=== PATIENT | male | born 1935 | race Caucasian/White ===

== ENCOUNTER 2019-05-20 14:51 | Outpatient (CLI) | payer MEDICARE, OTHER | END 2019-05-20 23:59 | disposition home or self-care (01) | LOC: VAS 14:51 | PROVIDERS: ATTEND Internal Medicine Cardiovascular Disease | DX: R06.9 Unspecified abnormalities of breathing (principal); R60.9 Edema, unspecified; Z87.891 Personal history of nicotine dependence | CPT/HCPCS: 93971 ==

== ENCOUNTER 2019-09-03 05:53 | Day surgery (SDC) | payer MEDICARE, OTHER ==
[2019-09-02 12:36] LABS: BASOPHILS # (AUTO) 0.1 X10'3 (0-0.2); BASOPHILS % (AUTO) 0.8 % (0-1); EOSINOPHILS # (AUTO) 0.3 X10'3 (0-0.9); EOSINOPHILS % (AUTO) 4.1 % (0-6); HEMATOCRIT 43.2 % (42.0-52.0); HEMOGLOBIN 13.7 g/dl (14.0-17.9); LYMPHOCYTES # (AUTO) 2.1 X10'3 (1.1-4.8); LYMPHOCYTES % (AUTO) 30.5 % (21-51); MEAN CORPUSCULAR HEMOGLOBIN 27.2 PG (27.0-31.0); MEAN CORPUSCULAR HGB CONC 31.7 g/dL (33.0-36.5); MEAN CORPUSCULAR VOLUME 85.9 FL (78-98); MEAN PLATELET VOLUME 8.7 FL (7.4-10.4); MONOCYTES # (AUTO) 0.7 X10'3 (0-0.9); MONOCYTES % (AUTO) 10.4 % (2-12); NEUTROPHILS # (AUTO) 3.7 X10'3 (1.8-7.7); NEUTROPHILS % (AUTO) 54.2 % (42-75); PLATELET COUNT 192 X10'3 (140-440); RED BLOOD COUNT 5.03 X10'6 (4.70-6.10); RED CELL DISTRIBUTION WIDTH 21.1 % (11.5-14.5); WHITE BLOOD COUNT 6.8 X10'3 (4.5-11.0)
[2019-09-02 12:49] LABS: ALBUMIN 3.6 G/DL (3.4-5.0); ANION GAP 5 (8-16); BLOOD UREA NITROGEN 17 MG/DL (7-18); BUN/CREATININE RATIO 14.3 (5.4-32.0); CALCIUM 8.8 MG/DL (8.5-10.1); CHLORIDE 105 MMOL/L (99-107); CREATININE 1.19 MG/DL (0.60-1.10); GLUCOSE 105 MG/DL (70-104); POTASSIUM 3.6 MMOL/L (3.5-5.1); SODIUM 145 MMOL/L (135-145); eGFR 58 ML/MIN
[2019-09-02 12:53] LABS: PARTIAL THROMBOPLASTIN TIME 34 SECONDS (22-32)
[2019-09-02 13:15] LABS: ANISOCYTOSIS 3+; PLATELET ESTIMATE NORMAL
[2019-09-02 13:16] LABS: POLYCHROMASIA FEW
[~2019-09-03] VITALS: Ht 182.9 cm; Wt 89.5 kg
[2019-09-03] VITALS (10 sets, daily range): BP systolic 120–190; BP diastolic 70–90
[2019-09-03] MEDS ORDERED: LORazepam 0.5 MG tablet PO PRN (06:25)
[2019-09-03] MEDS ORDERED: normal saline 1,000 ML IV SCH ×2 (06:25→09:50)
[2019-09-03] MEDS ORDERED: diphenhydrAMINE 25mg capsule PO PRN (06:25)
[2019-09-03] MEDS ORDERED: AMIO100T4 PO (06:43)
[2019-09-03] MEDS ORDERED: FURO40TA4 PO (06:43)
[2019-09-03] MEDS ORDERED: WARF2.5T82 PO (06:43)
[2019-09-03] MEDS ORDERED: LATA2.5D2 (06:43)
[2019-09-03] MEDS ORDERED: BRIM10DR2 (06:43)
[2019-09-03] MEDS ORDERED: MAGN500C16 PO (06:43)
[2019-09-03] MEDS ORDERED: APIX5TAB3 PO (06:43)
[2019-09-03] MEDS ORDERED: MULT-1085 PO (06:43)
[2019-09-03] MEDS ORDERED: ASPI-611 PO (06:43)
[2019-09-03] MEDS ORDERED: ATOR-2 PO (06:43)
[2019-09-03] MEDS ORDERED: LIDOcaine/PRILOcaine 5gm cream TP ONE (07:05)
[2019-09-03] MEDS ORDERED: nitroGLYCERIN-Tridil 50MG/D5W 250 ML IV ONE (07:43)
[2019-09-03] MEDS ORDERED: heparin 1,000unit/ml 10ml vial 10 ML ONE (07:43)
[2019-09-03] MEDS ORDERED: midazolam 2 mg/2 ml injection ONE (07:43)
[2019-09-03] MEDS ORDERED: verapamil 2.5 mg/ml inj IV ONE (07:43)
[2019-09-03] MEDS ORDERED: iohexol 350MG/ML 100ml bottle IV ONE (07:43)
[2019-09-03] MEDS ORDERED: LIDOcaine 1% (10mg/ml)w/preservative injection 20ml MDV ONE (07:43)
[2019-09-03] MEDS ORDERED: fentaNYL/PF 50MCG/1 ML 2ML syringe ONE (07:43)
[2019-09-03] MEDS ORDERED: iohexol 350 MG/ML 50ML vial IV ONE (07:43)
--- NOTE | 2019-09-03 13:05 | NUR ---
pt sat up to 45 degree, site stable, soft, no s/s of bleeding. Pt resting comfortably. will continue to monitor.
[2019-09-03 17:11] LABS: ISTAT Hct MIX 39 %PCV (42-52); ISTAT O2 SATURATION MIX VENOUS 73 % (60-80); ISTAT SOURCE MIX
[2019-09-03 17:11] LABS: ISTAT HGB ART 13.3 g/dl (14.0-18.0); ISTAT Hct ART 39 %PCV (42-52); ISTAT O2 SATURATION ARTERIAL 93 % (95-98); ISTAT SOURCE ART
== END 2019-09-03 14:10 | disposition home or self-care (01) ==
LOC: MED 3N 05:53 → SSTAY O 05:53
PROVIDERS: ATTEND Internal Medicine Cardiovascular Disease
DX: R94.39 Abnormal result of other cardiovascular function study (principal); I25.10 Atherosclerotic heart disease of native coronary artery without angina pectoris; E78.5 Hyperlipidemia, unspecified; I10 Essential (primary) hypertension; I48.0 Paroxysmal atrial fibrillation; G47.30 Sleep apnea, unspecified; Z79.899 Other long term (current) drug therapy; Z86.73 Personal history of transient ischemic attack (TIA), and cerebral infarction without residual deficits; Z79.01 Long term (current) use of anticoagulants; Z98.890 Other specified postprocedural states; Z85.46 Personal history of malignant neoplasm of prostate; Z79.82 Long term (current) use of aspirin; Z87.891 Personal history of nicotine dependence
CPT/HCPCS: 36415; 80048; 82803; 85014; 85025; 85610; 85730; 93005; 93460; 99152; 99153; C1769; C1894; J1644; J2001; J2250; J3010; J7030; Q0163; Q9967; A4620; C1760; GO378; J3490

== ENCOUNTER 2022-01-18 09:51 | Day surgery (SDC) | payer MEDICARE, OTHER ==
[2022-01-17 09:35] LABS: BASOPHILS # (AUTO) 0.1 X10'3 (0-0.2); BASOPHILS % (AUTO) 0.8 % (0-1); EOSINOPHILS # (AUTO) 0.2 X10'3 (0-0.9); EOSINOPHILS % (AUTO) 2.8 % (0-6); HEMATOCRIT 38.4 % (42.0-52.0); HEMOGLOBIN 12.2 g/dl (14.0-17.9); LYMPHOCYTES % (AUTO) 29.1 % (21-51); MEAN CORPUSCULAR HEMOGLOBIN 25.8 PG (27.0-31.0); MEAN CORPUSCULAR HGB CONC 31.9 g/dL (33.0-36.5); MEAN CORPUSCULAR VOLUME 80.8 FL (78-98); MEAN PLATELET VOLUME 8.2 FL (7.4-10.4); MONOCYTES # (AUTO) 0.5 X10'3 (0-0.9); MONOCYTES % (AUTO) 7.6 % (2-12); NEUTROPHILS # (AUTO) 4.1 X10'3 (1.8-7.7); NEUTROPHILS % (AUTO) 59.7 % (42-75); PLATELET COUNT 214 X10'3 (140-440); RED BLOOD COUNT 4.75 X10'6 (4.70-6.10); RED CELL DISTRIBUTION WIDTH 18.3 % (11.5-14.5); WHITE BLOOD COUNT 6.9 X10'3 (4.5-11.0)
[2022-01-17 09:53] LABS: ALBUMIN 3.4 G/DL (3.4-5.0); ANION GAP 8 (8-16); BLOOD UREA NITROGEN 22 MG/DL (7-18); BUN/CREATININE RATIO 14.1 (5.4-32.0); CALCIUM 8.6 MG/DL (8.5-10.1); CHLORIDE 104 MMOL/L (99-107); CREATININE 1.56 MG/DL (0.60-1.10); GLUCOSE 135 MG/DL (70-104); POTASSIUM 4.2 MMOL/L (3.5-5.1); SODIUM 141 MMOL/L (135-145); TOTAL CARBON DIOXIDE 29.1 MMOL/L (24-32); eGFR 42 ML/MIN
[2022-01-17 09:56] LABS: APTT 35 SECONDS (22-32)
[2022-01-18] VITALS (13 sets, daily range): BP systolic 114–194; BP diastolic 58–122
[~2022-01-18] VITALS: Ht 182.9 cm; Wt 89.0 kg
[~2022-01-18 09:51] MED LIST: AMIO100T4 PO; APIX5TAB3 PO; ASPI-611 PO; ATOR-2 PO; BRIM10DR2; FURO40TA4 PO; LATA2.5D14; MAGN500C4 PO; MULT-1085 PO; WARF2.5T82 PO
[2022-01-18] MEDS ORDERED: diphenhydrAMINE 25mg capsule PO PRN (10:20)
[2022-01-18] MEDS ORDERED: LORazepam 0.5 MG tablet PO PRN (10:20)
[2022-01-18] MEDS ORDERED: PANT-47 PO (10:43)
[2022-01-18] MEDS ORDERED: MONT-40 PO (10:47)
[2022-01-18] MEDS ORDERED: ISOS30TA84 PO (10:47)
[2022-01-18] MEDS ORDERED: IRBE150T24 PO (10:47)
[2022-01-18] MEDS ORDERED: NITR4.9S4 (10:47)
[2022-01-18] MEDS ORDERED: midazolam 1 mg/ML 2ml injection ONE (13:57)
[2022-01-18] MEDS ORDERED: verapamil 2.5 mg/ml inj IV ONE (13:57)
[2022-01-18] MEDS ORDERED: nitroGLYCERIN-Tridil 50MG/D5W 250 ML IV ONE (13:57)
[2022-01-18] MEDS ORDERED: heparin 1,000unit/ml 10ml vial 10 ML ONE (13:58)
[2022-01-18] MEDS ORDERED: iohexol 350MG/ML 100ml bottle IV ONE (13:58)
[2022-01-18] MEDS ORDERED: fentaNYL/PF 50MCG/1 ML 2ML syringe ONE (13:58)
[2022-01-18] MEDS ORDERED: LIDOcaine 1%/PF 5ML 10 MG/ML VIAL ONE (13:58)
[2022-01-18] MEDS ORDERED: normal saline 1000ml 1,000 ML IV SCH (15:30)
[2022-01-18] MEDS ORDERED: hydrALAZINE 20mg/ml inj. IV PRN (15:55)
[2022-01-18] MEDS ORDERED: carvedilol 6.25mg tablet PO ONE (16:10)
[2022-01-18] MEDS ORDERED: furosemide 20 MG/2 ML vial IV ONE (17:40)
[2022-01-18] MEDS ORDERED: latanoprost 0.005% 2.5ml ophthalmic drops EACHEYE SCH (21:00)
[2022-01-19] MEDS ORDERED: montelukast 10mg tablet PO SCH (08:00)
[2022-01-19] MEDS ORDERED: isosorbide mononitrate 30mg tab.SR.24H PO SCH (08:00)
[2022-01-19] MEDS ORDERED: aspirin 81mg, enteric-coated 1 TAB TABLET.DR PO SCH (08:00)
[2022-01-19] MEDS ORDERED: furosemide 40mg tablet PO SCH (08:00)
[2022-01-19] MEDS ORDERED: pantoprazole 40mg Tablet.DR PO SCH (08:00)
[2022-01-19] MEDS ORDERED: magnesium oxide 400mg tablet PO SCH (08:00)
[2022-01-19] MEDS ORDERED: multivitamins, therapeutics tablet PO SCH (08:00)
[2022-01-19] MEDS ORDERED: amiodarone 100mg tablet PO SCH (08:00)
[2022-01-19] MEDS ORDERED: atorvastatin 20mg tablet PO SCH (08:00)
[2022-01-19] MEDS ORDERED: warfarin 2.5mg tablet PO SCH (08:00)
== END 2022-01-18 20:01 | disposition home or self-care (01) ==
LOC: SSTAY O 09:51
PROVIDERS: ATTEND Internal Medicine Cardiovascular Disease
DX: I25.10 Atherosclerotic heart disease of native coronary artery without angina pectoris (principal); I10 Essential (primary) hypertension; I48.0 Paroxysmal atrial fibrillation; G47.30 Sleep apnea, unspecified; I49.5 Sick sinus syndrome; E78.5 Hyperlipidemia, unspecified; M35.3 Polymyalgia rheumatica; Z79.01 Long term (current) use of anticoagulants; Z79.82 Long term (current) use of aspirin; Z79.899 Other long term (current) drug therapy; Z86.73 Personal history of transient ischemic attack (TIA), and cerebral infarction without residual deficits; Z98.890 Other specified postprocedural states
CPT/HCPCS: 36415; 76937; 80048; 85025; 85610; 85730; 93005; 93458; 99152; 99153; C1769; C1894; J0360; J1644; J1940; J2250; J3010; J3490; J7030; Q0163; Q9967; A4615; A4620; A5120; A6258; A6402

== ENCOUNTER 2022-01-21 16:39 | Emergency (ER) | payer MEDICARE, OTHER ==
[~2022-01-21] VITALS: Ht 182.9 cm; Wt 87.3 kg
[~2022-01-21 16:39] MED LIST changes: -APIX5TAB3 PO; +IRBE150T24 PO; +ISOS30TA84 PO; +MONT-40 PO; +NITR4.9S4; +PANT-47 PO
--- NOTE | 2022-01-21 17:41 | NUR ---
NEW MEDS STARTED ON 01/19/22 CARVEDILOL 6.25MG, ISOSOBIDE 25 M
[2022-01-21] MEDS ORDERED: lisinopril 10 MG tablet PO ONE (21:05)
[2022-01-21] MEDS ORDERED: isosorbide mononitrate 30mg tab.SR.24H PO ONE (21:05)
[2022-01-21 22:28] VITALS: BP 166/82
== END 2022-01-21 22:32 | disposition home or self-care (01) ==
LOC: ER 16:40
DX: I10 Essential (primary) hypertension (principal); H53.8 Other visual disturbances; E78.00 Pure hypercholesterolemia, unspecified; Z88.1 Allergy status to other antibiotic agents; Z88.8 Allergy status to other drugs, medicaments and biological substances; Z79.82 Long term (current) use of aspirin; Z79.899 Other long term (current) drug therapy
CPT/HCPCS: 93005; 99284